=== PATIENT | male | born 1990 | race Caucasian/White ===

== ENCOUNTER 2020-06-26 04:29 | Day surgery (SDC) | payer BC ==
[2020-06-22 11:58] VITALS: BMI 24.4
[2020-06-26] MEDS ORDERED: PROPOFOL 20 ML ONE (12:14)
[2020-06-26] MEDS ORDERED: MIDAZOLAM HCL 2 MG/2 ML SINGLE DOSE VIAL ONE ×2 (12:14)
[2020-06-26] MEDS ORDERED: DEXAMETHASONE SOD PHOSPHATE 4 MG/1 ML VIAL ONE (12:35)
[2020-06-26] MEDS ORDERED: KETOROLAC TROMETHAMINE 30 MG/1 ML VIAL ONE (12:35)
[2020-06-26 13:18] VITALS: TEMP 98.2
[2020-06-26 14:04] VITALS: BP 101/66; PULSE 74
== END 2020-06-26 13:50 | disposition home or self-care (01) ==
LOC: JASU-SURG 04:29
PROVIDERS: ATTEND Urology
PROC: 0TF3XZZ Fragmentation in Right Kidney Pelvis, External Approach (ICD-10-PCS; principal; 2020-06-26 11:00)
DX: N20.0 Calculus of kidney (principal)